=== PATIENT | male | born 1980 | race African-American/Black ===

== ENCOUNTER 2024-11-30 21:18 | Emergency (ER) | payer MEDICAID ==
[~2024-11-30] VITALS: Ht 177.8 cm; Wt 103.9 kg
[2024-11-30 21:26] VITALS: O2SAT 98
[2024-11-30] MEDS: TETANUS, DIPHTHERIA, PERTUSSIS VAC/PF 0.5ML (>10YR OLD) IM ONE (22:15)
[2024-11-30] MEDS: KETOROLAC 30MG/ML VIAL IM ONE (22:15)
[2024-11-30] MEDS: LIDOCAINE HCL/PF 1% 10 MG/ML 5ML VIAL INFIL ONE (22:15)
[2024-11-30] MEDS: BACITRACIN ZINC OINT UDPKT TOP ONE (22:15)
[2024-12-01] MEDS: ACETAMINOPHEN 325MG TABLET PO ONE (00:19)
[2024-12-01 03:07] VITALS: BP 121/82; PULSE 104; RESP 18; TEMP 36.8; O2SAT 98
== END 2024-12-01 04:10 | disposition home or self-care (01) ==
LOC: ER 21:18
DX: S01.81XA Laceration without foreign body of other part of head, initial encounter (principal); V89.0XXA Person injured in unspecified motor-vehicle accident, nontraffic, initial encounter; R51.9 Headache, unspecified; M25.531 Pain in right wrist; Y93.89 Activity, other specified; Y92.89 Other specified places as the place of occurrence of the external cause; Y99.8 Other external cause status
CPT/HCPCS: 99285; 73110; 90715; 12011; 90471; 96372; 70450; 70486; J1885; J2003; A6449; A4565